=== PATIENT | male | born 1955 | race Caucasian/White ===

== ENCOUNTER → 2017-01-02 | Outpatient (CLI) | payer OTHER | LOC: LAB 16:00 | PROVIDERS: ATTEND Physician Assistant | DX: E55.9 Vitamin D deficiency, unspecified (principal) | CPT/HCPCS: 82306 ==

== ENCOUNTER 2017-07-23 03:23 | Inpatient (IN) ==
[2017-07-23] MEDS ORDERED: HYDROmorphone 2 MG/1 ML IVP ONE (03:50)
[2017-07-23] MEDS ORDERED: Sodium Chloride 0.9% 1,000 ML PRIMARY IV ONE ×2 (03:50→06:59)
[2017-07-23] MEDS ORDERED: ONDANSETRON 4 MG/2 ML VIAL IVP ONE (03:50)
[2017-07-23] MEDS ORDERED: NORMAL SALINE 10 ML SYRINGE FLUSH IVP PRN ×2 (03:50→06:59)
[2017-07-23 03:56] LABS: BASOPHILS # (AUTO) 0.05 10*3/UL; BASOPHILS % (AUTO) 0.5 % (0-1); EOSINOPHILS # (AUTO) 0.17 10*3/UL; EOSINOPHILS % (AUTO) 1.8 % (0-8); Hematocrit [HCT] 43.8 % (42.0-52.0); Hemoglobin [HGB] 15.3 g/dL (14.0-18.0); LYMPHOCYTES # (AUTO) 1.59 10*3/uL; MEAN CORPUSCULAR HEMOGLOBIN 29.7 PG (27-31); MEAN CORPUSCULAR HGB CONC 34.9 g/dL (33-37); MEAN CORPUSCULAR VOLUME 84.9 FL (80-90); MEAN PLATELET VOLUME 9.1 FL (7.4-12.2); MONOCYTES # (AUTO) 0.62 10*3/UL (0.3-0.8); MONOCYTES % (AUTO) 6.7 % (5-15); NEUTROPHILS % (AUTO) 73.6 % (50-80); RED BLOOD COUNT 5.16 10^6/uL (4.70-6.10)
[2017-07-23 03:57] LABS: PLATELET MORPHOLOGY COMMENT NORMAL MORPHOLOGY (NORM); RBC MORPHOLOGY COMMENT NORMAL MORPHOLOGY (NORM); WBC MORPHOLOGY COMMENT NORMAL MORPHOLOGY (NORM)
[2017-07-23 04:03] LABS: BLOOD UREA NITROGEN 17 mg/dL (7-22); LIPASE 72 IU/L (23-300); SERUM ALBUMIN 4.3 g/dL (3.5-4.8)
[2017-07-23 05:30] LABS: BILIRUBIN,URINE NEGATIVE (NEG); CLARITY,URINE CLEAR (CLEAR); COLOR,URINE YELLOW (Y); GLUCOSE, URINE (UA) NEGATIVE (NEG); NITRATE,URINE NEGATIVE (NEG); OCCULT BLOOD,URINE NEGATIVE (NEG); PROTEIN,URINE NEGATIVE (NEG); URINE SAMPLE TYPE CLEAN CATCH URINE
[2017-07-23 05:31] LABS: UROBILINOGEN,URINE 0.2 EU/dL (0.2)
--- NOTE | 2017-07-23 05:34 | DI ---
EXAM: CT Abdomen and Pelvis With Intravenous Contrast CLINICAL HISTORY: Abdominal pain. TECHNIQUE: Axial computed tomography images of the abdomen and pelvis with intravenous contrast. Coronal and sagittal reformatted images were created and reviewed. COMPARISON: No relevant prior studies available. FINDINGS: Lower thorax: Bibasilar scarring and atelectasis. ABDOMEN: Liver: Unremarkable. No mass. Gallbladder and bile ducts: Unremarkable. No calcified stones. No ductal dilation. Pancreas: Unremarkable. No mass. No ductal dilation. Spleen: Unremarkable. No splenomegaly. Adrenals: Unremarkable. No mass. Kidneys and ureters: 2.5 cm exophytic left renal lesion with internal density characteristics suggestive of complex cyst or soft tissue. No hydronephrosis. Stomach and bowel: There is abnormal wall thickening of small bowel loops in the right abdomen. Secondary moderate degree of dilatation of the more proximal small bowel loops with air-fluid levels. Also, wall thickening of the hepatic flexure. Small amount of free fluid. No free air or fluid collections. Diverticulosis without evidence of diverticulitis. Appendix: Normal appendix. PELVIS: Bladder: Unremarkable. No mass. Reproductive: Unremarkable as visualized. ABDOMEN and PELVIS: Intraperitoneal space: See above. Bones/joints: No acute fracture. No dislocation. Soft tissues: Unremarkable. Vasculature: Unremarkable. No abdominal aortic aneurysm. Lymph nodes: Unremarkable. No enlarged lymph nodes. IMPRESSION: Findings suspicious for infectious or inflammatory or ischemic colitis in right abdomen with secondary developing small bowel obstruction. Also, likely component of colitis involving the hepatic flexure. Small amount of free fluid. No free air or fluid collections. Normal appendix. No diverticulitis. 2.5 cm complex cyst versus soft tissue mass arising from left kidney. Recommend correlation with sonogram. [employer] 07/23/17 10:10 Call From [facility] Dr. Santana on 07/23 09:23 (-06:00)
--- NOTE | 2017-07-23 06:15 | PDOC ---
Abdomen/Flank HPI - General Chief Complaint: Abdomen Pain Stated Complaint: ABD PAIN Date Seen by Provider: 07/23/17 Time Seen by Provider: 03:35 Source: POSITIVE: Patient, Spouse Exam Limitations: POSITIVE: No limitations Nurse's Notes Reviewed & Considered: Yes - History of Present Illness Initial Comments: The patient is a 62-year-old male who presents to the emergency room with his . 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 He states he is been nauseated but has not had any vomiting. He states his only abdominal surgery occurred when he was 2 months old and had surgery for "telescoping of the bowel ". No diarrhea. No dysuria or hematuria. No melena, hematochezia or hematemesis. No known fevers. Body Location Affected: REPORTS: Abdomen Timing: REPORTS: Abrupt Duration: 4-6 hours Severity: Severe Quality: REPORTS: "Pain" Abdominal Pain Onset Location: REPORTS: RLQ Abdominal Pain Radiation: REPORTS: No radiation Context: REPORTS: None Modifying Factors: worse with: Nothing, Analgesics, Antacids, Breathing, Coughing, Defecating, Vomiting, Eating, Exercise, Lying down, Urinating, Palpation, Movement, Rest, Upright Position, Walking, Remaining Still, Other Associated Symptoms: REPORTS: Nausea Similar Symptoms Previously: No Recent Care Received: REPORTS: Denies Any Prior Injuries Related to Current Complaint?: No - Patient Home Medications Home Medications: Home Medications NK [NK] 07/23/17 - Patient Allergies Allergies/Adverse Reactions: Allergies 3 Allergy/AdvReac Type Severity Reaction Status Date / Time Sulfa (Sulfonamide Allergy Severe Anaphylaxis Verified 07/23/17 03:32 Antibiotics) Past Medical History - heen HEENT History: Denies History Cardiovascular History: Denies History Respiratory History: Denies History Gastrointestinal History: Other (please comment) Additional Gastrointestinal History: HAD AN ABDOMINAL SURGERY A BABY, UNSURE OF WHAT WAS DONE. Genitourinary History: Denies History Endocrine History: Denies History Musculoskeletal History: Denies History Neurological History: Denies History Blood Disorders: Denies History Psychiatric History: Denies History History of Sexually Transmitted Diseases: No Male Reproductive History: Denies History Cancer History: Denies History In Past Year Been Physically Harmed or Verbally Threatened: No History of MDRO: No History of Other Communicable Diseases: No Tobacco Use: Never Smoker In the Past 12 Months, Have Used or Abuse Any Substance: None Previous Surgical History: Yes Type / Date of Surgery: ABDOMINAL SURGERY A BABY Anesthesia Reactions: No Malignant Hyperthermia: No Family History of Malignant Hyperthermia: No Significant Family History: No pertinent family hx Past Medical History Reviewed: Reviewed - No Changes ROS - Limitations ROS Limitations: No Limitations Constitution: REPORTS: Denies Symptoms Cardiovascular: REPORTS: Denies Cardiac Symptoms Respiratory: REPORTS: Denies Resp Symptoms Neurological: REPORTS: Denies Neuro Symptoms Gastrointestinal: REPORTS: Abdominal Pain Endocrine: REPORTS: Denies Symptoms Musculoskeletal: REPORTS: Denies MS Symptoms Genitourinary: REPORTS: Denies Symptoms Eyes: REPORTS: Denies Symptoms ENT: REPORTS: Denies Symptoms Skin: REPORTS: Denies Skin Symptoms Lympathic: REPORTS: Denies Lympathic Symptoms Immunologic: POSITIVE: Denies Symptoms Psychiatric: POSITIVE: Denies Psych Symptoms Abdominal/Flank Pain PE - General Appearance General Appearance: POSITIVE: Alert, Cooperative, No Acute Distress, No Evidence of Trauma - HEENT HEENT: POSITIVE: Head Inspection Nml, Eyes Inspection Nml, Ears Inspection Nml, Nose Inspection Nml, Oral/Dental Inspect. Nml, Pharynx Inspect. Nml, PERRL, EOMI - Neck Neck: POSITIVE: Normal Inspection, No Apparent Injury - Respiratory Respiratory: POSITIVE: No Respiratory Distress, Breath Sounds Normal, Chest Non- Tender - Cardiovascular Cardiovascular: POSITIVE: Regular Rate and Rhythm, Heart Sounds Normal, Equal Pulses, Strong Pulses Peripheral Pulses: Radial (R): 2+, Radial (L): 2+ - Chest Chest: POSITIVE: Non Tender - Abdomen Abdomen: Soft: (LLQ), (LUQ), (RUQ), Normal Bowel Sounds: (All Quadrants), Denies Tenderness: (LLQ), (LUQ), (RUQ), No Splenomegaly: (All Quadrants), No Hepatomegaly: (All Quadrants), No Guarding: (All Quadrants), No Rebound: (All Quadrants), No Palpable Pulse: (All Quadrants), No Palpabale Mass: (All Quadrants), No Distention: (All Quadrants), No Rigidity: (All Quadrants), Tenderness Noted: (RLQ) Additional Abdominal Details: Abdominal examination shows bowel sounds to be present. There is pain on direct palpation over the right lower quadrant and right paraumbilical area. A surgical scar is noted chest right of the umbilicus. No masses, organomegaly or rebound. 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 Secondary moderate degree of dilation of the more proximal small bowel loops with air-fluid levels. Also, wall thickening of the hepatic flexure. Small amount of free fluid. No free air or fluid collections. Normal appendix. Findings suspicious for infectious or inflammatory or ischemic colitis in right abdomen with secondarily developing small bowel obstruction. Also, likely component of colitis involving the hepatic flexure. Lab Results Reviewed by Me: Yes CBC and BMP: 07/23/17 03:39 07/23/17 03:39 - Patient's Progress Pain Medication Addressed: POSITIVE: Yes (Patient given Dilaudid, 2 mg IV with alleviation of pain) School/Work Release Addressed: POSITIVE: Not Applicable Re-examine Time: 06:00 Re-Examine Comment: Patient feels somewhat better after fluids and Dilaudid and Zofran, but still quite tender in the right abdomen. Status: POSITIVE: Improved, Re-Examined - Consult Consult (If Yes, Name of Consulting MD & Time Called): Yes (Dr. Santana surgeon, Dr. Coombs hospitalist, [id number]) Consulting MD will see pt:: POSITIVE: [facility] [place] Admit Counseled: POSITIVE: Patient, Family, RE: Lab Results, RE: Radiology Results, RE : DX, RE: Need for F/U Patient Care Time - Estimated PCT Patient Care Time (In Minutes): 60 Vital Signs - Recent Vital Signs Vital Signs: Vital Signs (Last 8 hours) Temp Pulse Resp BP Pulse Ox 07/23/17 03:23 97.5 F 55 L 22 142/87 95 - VS Reviewed Vital Signs Reviewed: Yes Discharge Clinical Impression: Abdominal pain Discharge Disposition: Admit to Inpatient Condition: Stable Follow Up With: Will Chery FNP [Primary Care Provider] - Date Decision to Admit to Inpatient: 07/23/17 Time Decision to Admit to Inpatient: 06:00
[2017-07-23] MEDS ORDERED: HYDROmorphone 2 MG/1 ML IVP PRN (06:59)
[2017-07-23] MEDS ORDERED: LIDOCAINE W/ SODIUM BICARB 0.5 ML SYR SUBD PRN (06:59)
[2017-07-23] MEDS ORDERED: ONDANSETRON 4 MG/2 ML VIAL IVP PRN (06:59)
[2017-07-23] MEDS: Sodium Chloride 0.9% 1,000 ML PRIMARY IV SCH ×2 (08:25→21:00)
--- NOTE | 2017-07-23 08:52 | EKG ---
[address] [address] Measurements Intervals [place] Rate: 53 P: 81 MS: 140 QRS: 58 QRSD: 104 T: 41 QT: 435 QTc: 419 Interpretive Statements SINUS BRADYCARDIA POSSIBLE RIGHT VENTRICULAR CONDUCTION DELAY No previous ECG available for comparison Electronically Signed On 07-24-17 14:43:42 MDT by Dagoberto Horowitz [email or web address]
--- NOTE | 2017-07-23 10:54 | CONSULT ---
Consult Note - Consult Consult Date: 07/23/17 Reason for Consult: PreOp Consulation : General Surgery Requesting Physician: Dr. María Grant Primary Care Provider: Will Chery DNP - History of Present Illness History of Present Illness: Patient is a 62-year-old male who I am asked to see for partial small bowel obstruction. Patient reports he was fine yesterday. He ate popcorn, raw carrots and salad. He developed an upset stomach. He went to bed about 10 PM. He woke up an hour and a half later with some increasing pain. He tried to go to the bathroom but didn't. He went back to bed and woke up with severe pain. He was soaked in sweat. He was having cramping abdominal pain. He presented to the hospital and had some nausea at that time. He did not vomit. Patient had a loose bowel movement yesterday afternoon. He has passed some gas this morning. Patient presented to the emergency room. He was afebrile and his vital signs were stable. Lab work and urinalysis were unremarkable. He had a CT scan of his abdomen and pelvis with IV contrast. His colon looks normal with possibly a small area of narrowing at the hepatic flexure but most likely peristalsis. His appendix is normal. He has some abnormally thickened loops of small bowel in the right mid abdomen. This is approximately 10 cm proximal to the ileocecal valve or in his terminal ileum. There is proximal small bowel dilatation. There is small bowel fecalization. This was read as possibly infectious, ischemic or inflammatory colitis. I reviewed this with a different radiologist who reports it should be infectious, ischemic, or inflammatory enteritis not colitis. He has a cyst on a kidney and on ultrasound is pending. 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 Sounds as though he had intussusception. He believes a section of bowel was removed. Patient reports some chronic abdominal complaints which have not been much of a bother for the last 10 years. He does occasionally have cramps. The reports he has to eat very slow and chews his food well. It sounds as though he may have had some abdominal symptoms for a long time. He has had colonoscopies in the past. His last was more than 5 years ago but less than 10 years ago. There is a family history of colon cancer. He reports he is having stools of decreased caliber for the last 2 months. He denies bright red blood per rectum. Patient was admitted and given a milligram of Dilaudid. An NG tube was placed. He did pass some gas this morning but had no bowel movement. He reports his pain is markedly improved. He feels good at this time. Review of Systems - Respiratory Respiratory: REPORTS: Negative System Review. DENIES: Cough, Sputum, Dyspnea At Rest, Dyspnea with Exertion, Pleuritic Pain, Hemoptysis, Wheezing, Other, See HPI - Cardiovascular Cardiovascular: REPORTS: Negative System Review. DENIES: Chest Pain, Edema, Syncope, Palpitations, Orthopnea, Paroxysmal Nocturnal Dyspnea, Other, See HPI - Gastrointestinal Gastrointestinal / Abdominal: REPORTS: Nausea, Diarrhea, Abdominal Pain, Bloating, See HPI. DENIES: Negative System Review, Vomiting, Constipation, Bloody Stool, Poor Appetite, Heartburn, Regurgitation, Lactose Intolerance, Melena, Bright Red Blood per Rectum, Other Past Medical History Medical History: Chronic abdominal complaints. Obstructive sleep apnea(he uses a CPAP). Surgical History: Small bowel resection. Left ear tumor. Transurethral resection of the prostate. Tonsillectomy and adenoidectomy. Colonoscopy more than 5 years ago but less than 10 years ago. Tobacco Use: Never Smoker In the Past 12 Months, Have Used or Abuse Any of the Following Substance: None Medication / Allergies Home Medications: Home Medications Medication Instructions Recorded Confirmed Type Aspirin [Aspir 81] 81 mg PO DAILY 07/23/17 07/23/17 History Fluticasone Nasal Arminto 0.05% 2 sprays NASAL DAILY 07/23/17 07/23/17 History [Flonase Nasal Arminto 0.05%] Allergies/Adverse Reactions: Allergies 3 Allergy/AdvReac Type Severity Reaction Status Date / Time Sulfa (Sulfonamide Allergy Severe Anaphylaxis Verified 07/23/17 03:32 Antibiotics) Exam - Vitals Vital Signs: Vital Signs Temperature 97.6 F Temperature Source Temporal Artery Scan Pulse Rate [Pulse Oximeter] 46 Pulse Rate 52 Respiratory Rate 17 Blood Pressure [Left Arm] 151/77 Blood Pressure 130/87 Pulse Ox 100 Oxygen Delivery Method Room Air Height 5 ft 10 in Weight 181 lb - General General Appearance: No Acute Distress, Cooperative - Respiratory Respiratory Exam: POSITIVE: Clear to Auscultation - Bilaterally, Breathing Non Labored - Cardiovascular Cardiovascular Exam: POSITIVE: RRR, No Murmur - GI/Abdominal GI/Abdominal Exam: POSITIVE: Normal Bowel Sounds, Non Distended, Soft Additional GI/Abdominal Exam Details: Patient has good bowel tones. Some of them sounded been obstructive in nature. He has some mild right upper quadrant tenderness. No peritoneal irritation. Certainly not an acute surgical abdomen. - Rectal Rectal Exam: POSITIVE: Deferred - Neurological Neurological Exam: POSITIVE: Alert, Oriented x 3 - Psychiatric Psychiatric Exam: POSITIVE: Normal Affect, Normal Mood Assessment and Plan - Patient Problems (1) Partial small bowel obstruction Current Visit: Yes Status: Acute Priority: High Onset Date: ~07/22/17 Comment: In fact he probably has chronic problems as evidenced by his history. At any rate it seemed to worsen last night. He has abnormally thickened terminal ileum. This could represent scar tissue, ischemia, infectious, or inflammatory condition. With the fecalization of his small bowel I think it is chronic in nature. We will get a Gastrografin challenge today. If things move through he can likely be discharged if he tolerates a diet. Would do an outpatient CT with oral, rectal, and IV contrast. If things don't improve by the morning I would recommend an exploratory laparotomy with probably resection of this abnormal small bowel. I discussed all the above in detail with the patient and his as well as with Dr. Daniel. All are in agreement to proceed as outlined. Also check a.m. labs which have been ordered. Code(s): K56.69 - Other intestinal obstruction (2) Abdominal pain Current Visit: Yes Status: Acute Priority: Medium Onset Date: ~07/22/17 Comment: Secondary to his partial small bowel obstruction. Largely resolved. Continue to monitor. Code(s): R10.9 - Unspecified abdominal pain (3) Change in bowel habits Current Visit: Yes Status: Acute Priority: Medium Onset Date: ~05/20/17 Comment: Patient reports 2 weeks of decreased caliber stool and a family history of colon cancer. He will need an outpatient colonoscopy after resolution of his acute problem. Code(s): R19.4 - Change in bowel habit Results - Labs CBC and BMP: 07/23/17 03:39 07/23/17 03:39 - Imaging Status: Image Reviewed by Me (And discussed with the radiologist.), Report Reviewed by Me (Should say enteritis and not colitis.)
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
--- NOTE | 2017-07-23 18:31 | PDOC(PROG) ---
Date and Time of Service: 07/23/2017 6:30 PM Interval History: Patient is feeling well. No pain. No nausea. I called to check on him and had had multiple bowel movements. I came in to evaluate him for the same. The Gastrografin has cleared the small bowel. The colon is full of Gastrografin in its down to his rectum. There are no longer dilated loops of small bowel. Objective : Data - Labs CBC and BMP: 07/23/17 03:39 07/23/17 03:39 - Imaging Imaging Details: The Gastrografin is throughout the entire colon and into the rectum. It is cleared from the small bowel. There is no evidence of obstruction. - Vital Signs Vital Signs and I&O: Vital Signs - Last Taken Temperature 97 F 07/23/17 16:16 Pulse Rate 63 07/23/17 16:16 Respiratory Rate 18 07/23/17 16:16 Blood Pressure 127/71 07/23/17 16:16 Pulse Ox 94 07/23/17 16:16 Intake and Output (24hr x 4 totals) 07/21/17 07/22/17 07/23/17 07/24/17 05:59 05:59 05:59 05:59 Intake Total 2740 / 2740 Output Total 1100 / 1100 Balance 1640 / 1640 Objective : Exam - General General Appearance: No Acute Distress, Cooperative - GI/Abdominal GI/Abdominal Exam: Normal Bowel Sounds, Non Tender, Non Distended, Soft - Neurological Neurological Exam: Alert, Oriented x 3 - Psychiatric Psychiatric Exam: Normal Affect, Normal Mood Assessment and Plan - Patient Problems (1) Partial small bowel obstruction Current Visit: Yes Status: Acute Priority: High Onset Date: ~07/22/17 Comment: Resolved on x-ray. We will discontinue the NG tube and start clear liquids. We'll get an x-ray in the morning. We'll make the patient nothing by mouth after midnight. We will cut his IV fluids back but continued through the night as he will be nothing by mouth. We still have an abnormal area of small bowel which will need to be further evaluated. I will talk to the radiologist tomorrow. The question is whether we do a follow-up CT tomorrow or do it in a couple weeks with oral and IV contrast. Further recommendations pending my conversation with the radiologist. Code(s): K56.69 - Other intestinal obstruction (2) Abdominal pain Current Visit: Yes Status: Acute Priority: Medium Onset Date: ~07/22/17 Comment: Resolved. Code(s): R10.9 - Unspecified abdominal pain (3) Change in bowel habits Current Visit: Yes Status: Acute Priority: Medium Onset Date: ~05/20/17 Comment: Plan outpatient colonoscopy for change in bowel habits and positive family history of colon cancer. Code(s): R19.4 - Change in bowel habit
[2017-07-24 04:52] LABS: BASOPHILS # (AUTO) 0.02 10*3/UL; BASOPHILS % (AUTO) 0.4 % (0-1); EOSINOPHILS # (AUTO) 0.23 10*3/UL; EOSINOPHILS % (AUTO) 4.8 % (0-8); Hematocrit [HCT] 41.4 % (42.0-52.0); LYMPHOCYTES # (AUTO) 1.67 10*3/uL; MEAN CORPUSCULAR HEMOGLOBIN 29.2 PG (27-31); MEAN CORPUSCULAR HGB CONC 33.8 g/dL (33-37); MEAN CORPUSCULAR VOLUME 86.3 FL (80-90); MEAN PLATELET VOLUME 9.2 FL (7.4-12.2); MONOCYTES # (AUTO) 0.39 10*3/UL (0.3-0.8); MONOCYTES % (AUTO) 8.1 % (5-15); NEUTROPHILS # (AUTO) 2.48 10*3/UL; NEUTROPHILS % (AUTO) 51.7 % (50-80)
[2017-07-24 04:53] LABS: PLATELET MORPHOLOGY COMMENT NORMAL MORPHOLOGY (NORM); RBC MORPHOLOGY COMMENT NORMAL MORPHOLOGY (NORM); WBC MORPHOLOGY COMMENT NORMAL MORPHOLOGY (NORM)
[2017-07-24 05:04] LABS: BLOOD UREA NITROGEN 14 mg/dL (7-22); BUN/CREATININE RATIO 15.55 (6-20); MAGNESIUM 1.9 mg/dL (1.6-2.4); SERUM ALBUMIN 3.3 g/dL (3.5-4.8)
--- NOTE | 2017-07-24 09:34 | DI ---
XR CXR 2VW PA/LAT,07/23/2017 3:51 AM: Clinical History: Abdominal pain. Previous Exam: January 29, 2009 Findings: PA and lateral views of the chest were obtained, and demonstrate clear lungs. The cardiomediastinum a nd bony thorax are unremarkable. Impression: Normal chest.
--- NOTE | 2017-07-24 12:31 | DI ---
XR SMALL BOWEL SERIES,07/23/2017 10:38 AM: Clinical History: Partial small bowel obstruction. Previous Exam: CT abdomen pelvis performed July 23, 2017 Findings: Multiple views are obtained at different times after oral administration of contrast, and demonstrate continued advancement of contrast throughout the small bowel and into the colon and rectum. There is also some contrast enhancement within the urinary bladder. There is no evidence of obstruction on th is exam. The appendix is normal. Visualized ureters are unremarkable. Skeletal structures are unremarkable and no pathologic calcifica tions are seen. Impression: Normal passage of contrast through the entire length of the alimentary canal.
--- NOTE | 2017-07-24 13:39 | DI ---
XR ABDOMEN KUB UPRIGHT,07/24/2017 7:00 AM: Clinical History: Partial small bowel obstruction. Previous Exam: July 23, 2017 Findings: 3 views of the abdomen and pelvis are obtained, and demonstrate contrast throughout the colon. There is also contrast noted within the rectum and sigmoid. There is no evidence of air-fluid level nor sma ll bowel dilation. The appendix is normal. There is no subdiaphragmatic free air. No pathologic calci fications are seen and no fractures are seen. There is some contrast noted within the urinary bilateral. Impression: The contrast throughout the colon with no evidence of small bowel obstruction on this exam.
--- NOTE | 2017-07-24 15:57 | PDOC(PROG) ---
Date and Time of Service: 07/24/2017 patient was seen at 9 AM and at 3:45 PM Interval History: Patient reports he feels much better than yesterday. He is tolerating clear liquids. He has had multiple liquid bowel movements. He is passing gas. He does have some right mid abdominal pain but nothing like he had prior to presentation. He denies nausea or vomiting. His x-rays have been reviewed with the radiologist. He has some kind of distal small bowel enteritis. Whether this is viral, bacterial, or inflammatory is unclear. Possible scar tissue from his prior surgery also exists. The radiologist felt that the best course of action would be to do a CT enterography in approximately 2-4 weeks to further evaluate this segment. Has been discussed with the patient and his . Objective : Data - Labs CBC and BMP: 07/24/17 04:25 07/24/17 04:25 - Imaging Imaging Details: Today's x-ray shows the contrast throughout the colon and into the rectum. No evidence of bowel obstructive process. - Vital Signs Vital Signs and I&O: Vital Signs - Last Taken Temperature 97.8 F 07/24/17 11:20 Pulse Rate 70 07/24/17 11:20 Respiratory Rate 18 07/24/17 11:20 Blood Pressure 128/63 07/24/17 11:20 Pulse Ox 97 07/24/17 11:20 Intake and Output (24hr x 4 totals) 07/22/17 07/23/17 07/24/17 07/25/17 05:59 05:59 05:59 05:59 Intake Total 3523 / 3523 480 / 480 Output Total 1350 / 1350 400 / 400 Balance 2173 / 2173 80 / 80 Objective : Exam - General General Appearance: No Acute Distress, Cooperative - Respiratory Respiratory Exam: Clear to Auscultation - Bilaterally, Breathing Non Labored - Cardiovascular Cardiovascular Exam: RRR, No Murmur - GI/Abdominal GI/Abdominal Exam: Normal Bowel Sounds, Non Distended, Soft Additional GI/Abdominal Exam Details: Patient has some right mid abdominal tenderness to palpation. No peritoneal signs. No obvious mass. Assessment and Plan - Patient Problems (1) Partial small bowel obstruction Current Visit: Yes Status: Acute Priority: High Onset Date: ~07/22/17 Comment: Resolved. Probably secondary to some kind of an enteritis. We will plan follow-up in my office in [address] at that time. Discussed with the patient and his . Will advance him to a low residue diet tomorrow. Patient to stay on a low residue diet until he sees me in the office. Code(s): K56.69 - Other intestinal obstruction (2) Abdominal pain Current Visit: Yes Status: Acute Priority: Medium Onset Date: ~07/22/17 Comment: Right midabdomen, secondary to his enteritis. No fevers, no elevation of his white count. Continue to monitor. Code(s): R10.9 - Unspecified abdominal pain (3) Change in bowel habits Current Visit: Yes Status: Acute Priority: Medium Onset Date: ~05/20/17 Comment: Needs a colonoscopy. Whether I will do this before or after the CT enterography is still to be decided. This should be done preop if we need to pursue surgery. If the diarrhea persists will also get stool studies. Code(s): R19.4 - Change in bowel habit
--- NOTE | 2017-07-24 16:42 | PDOC(PROG) ---
Date and Time of Service: 07/24/2017, 1638 Interval History: No completes of chest pain, shortness breath, nausea or vomiting. Tolerating soft diet so far. Had cream of wheat earlier today and tolerated that. Passing gas and bowel movements. KUB read as negative and normal. I discussed with surgery, and the patient will be on a low residual diet for the next 2 weeks, and do CT scan outpatient. We will make sure he can tolerate low residual diet through the next night, and then possibly discharge tomorrow. I was also able to schedule a urology appointment to look at his renal mass. Will order ultrasound for an outpatient. Patient states his pain is improved by orders and management. Objective : Data - Labs CBC and BMP: 07/24/17 04:25 07/24/17 04:25 Additional Lab Results: Laboratory Results 07/23/17 07/23/17 07/23/17 Range/Units 03:39 03:39 05:24 WBC 9.25 (4.8-10.8) 10^3/uL RBC 5.16 (4.70-6.10) 10^6/uL Hgb 15.3 (14.0-18.0) g/dL Hct 43.8 (42.0-52.0) % MCV 84.9 (80-90) FL MCH 29.7 (27-31) PG MCHC 34.9 (33-37) g/dL RDW Std Deviation 39.8 (39-50) fL RDW Coeff of Tabatha 13.0 (11.5-14.5) % Plt Count 251 (140-350) 10*3/uL MPV 9.1 (7.4-12.2) FL Immature Gran % (Auto) 0.2 (0-5) % Neut % (Auto) 73.6 (50-80) % Lymph % (Auto) 17.2 (10-50) % [place] % (Auto) 6.7 (5-15) % Eos % (Auto) 1.8 (0-8) % Baso % (Auto) 0.5 (0-1) % Immature Gran # (Auto) 0.02 10*3/UL Neut # (Auto) 6.80 10*3/UL Lymph # (Auto) 1.59 10*3/uL [place] # (Auto) 0.62 (0.3-0.8) 10*3/UL Eos # (Auto) 0.17 10*3/UL Baso # (Auto) 0.05 10*3/UL WBC Morphology Comment Normal morphology (NORM) Plt Morphology Comment Normal morphology (NORM) RBC Morph Comment Normal morphology (NORM) PT (9.7-11.4) secs INR (0.00-5.90) N/A Sodium 138 (135-145) meq/L Potassium 4.1 (3.8-5.2) meq/L Chloride 102 (98-112) meq/L Carbon Dioxide 26 (23-33) meq/L Anion Gap 10 (5-20) BUN 17 (7-22) mg/dL Creatinine 1.0 (0.70-1.50) mg/dL Estimated GFR > 60 (>60 ml/min/1.73m(2)) BUN/Creatinine Ratio 17.00 (6-20) Glucose 102 (78-110) mg/dL Calculated Osmolality 287.0 (267-292) mOsm/kg Lactic Acid (0.70-2.10) MMOL/L Calcium 9.6 (8.7-10.7) mg/dL Magnesium (1.6-2.4) mg/dL Total Bilirubin 0.6 (0.3-1.2) mg/dL AST 58 H (21-57) IU/L ALT 43 (21-72) IU/L Alkaline Phosphatase 54 (38-126) IU/L Total Protein 7.2 (6.1-8.0) g/dL Albumin 4.3 (3.5-4.8) g/dL Globulin 2.9 (2.50-4.10) g/dL Albumin/Globulin Ratio 1.40 (1.3-2.0) mg/g Amylase 83 (30-110) U/L Lipase 72 (23-300) IU/L Ur Collection Type Clean catch urine Urine Color Yellow (Y) Urine Clarity Clear (CLEAR) Urine pH 7.0 (5.0-8.5) Ur Specific [place] 1.010 (1.005-1.030) Urine Protein Negative (NEG) mg/dl Urine Glucose (UA) Negative (NEG) mg/dL Urine Ketones Negative (NEG) Urine Occult Blood Negative (NEG) Urine Nitrate Negative (NEG) Urine Bilirubin Negative (NEG) Urine Urobilinogen 0.2 (0.2) EU/dL Ur Leukocyte Esterase Negative (NEG) Ur Culture Indicated? Culture not set 07/23/17 07/23/17 07/24/17 Range/Units 07:15 07:15 04:25 WBC 4.80 (4.8-10.8) 10^3/uL RBC 4.80 (4.70-6.10) 10^6/uL Hgb 14.0 (14.0-18.0) g/dL Hct 41.4 L (42.0-52.0) % MCV 86.3 (80-90) FL MCH 29.2 (27-31) PG MCHC 33.8 (33-37) g/dL RDW Std Deviation 40.7 (39-50) fL RDW Coeff of Tabatha 13.0 (11.5-14.5) % Plt Count 210 (140-350) 10*3/uL MPV 9.2 (7.4-12.2) FL Immature Gran % (Auto) 0.2 (0-5) % Neut % (Auto) 51.7 (50-80) % Lymph % (Auto) 34.8 (10-50) % [place] % (Auto) 8.1 (5-15) % Eos % (Auto) 4.8 (0-8) % Baso % (Auto) 0.4 (0-1) % Immature Gran # (Auto) 0.01 10*3/UL Neut # (Auto) 2.48 10*3/UL Lymph # (Auto) 1.67 10*3/uL [place] # (Auto) 0.39 (0.3-0.8) 10*3/UL Eos # (Auto) 0.23 10*3/UL Baso # (Auto) 0.02 10*3/UL WBC Morphology Comment Normal morphology (NORM) Plt Morphology Comment Normal morphology (NORM) RBC Morph Comment Normal morphology (NORM) PT 10.7 (9.7-11.4) secs INR 1.01 (0.00-5.90) N/A Sodium (135-145) meq/L Potassium (3.8-5.2) meq/L Chloride (98-112) meq/L Carbon Dioxide (23-33) meq/L Anion Gap (5-20) BUN (7-22) mg/dL Creatinine (0.70-1.50) mg/dL Estimated GFR (>60 ml/min/1.73m(2)) BUN/Creatinine Ratio (6-20) Glucose (78-110) mg/dL Calculated Osmolality (267-292) mOsm/kg Lactic Acid 0.8 (0.70-2.10) MMOL/L Calcium (8.7-10.7) mg/dL Magnesium 2.0 (1.6-2.4) mg/dL Total Bilirubin (0.3-1.2) mg/dL AST (21-57) IU/L ALT (21-72) IU/L Alkaline Phosphatase (38-126) IU/L Total Protein (6.1-8.0) g/dL Albumin (3.5-4.8) g/dL Globulin (2.50-4.10) g/dL Albumin/Globulin Ratio (1.3-2.0) mg/g Amylase (30-110) U/L Lipase (23-300) IU/L Ur Collection Type Urine Color (Y) Urine Clarity (CLEAR) Urine pH (5.0-8.5) Ur Specific [place] (1.005-1.030) Urine Protein (NEG) mg/dl Urine Glucose (UA) (NEG) mg/dL Urine Ketones (NEG) Urine Occult Blood (NEG) Urine Nitrate (NEG) Urine Bilirubin (NEG) Urine Urobilinogen (0.2) EU/dL Ur Leukocyte Esterase (NEG) Ur Culture Indicated? 07/24/17 Range/Units 04:25 WBC (4.8-10.8) 10^3/uL RBC (4.70-6.10) 10^6/uL Hgb (14.0-18.0) g/dL Hct (42.0-52.0) % MCV (80-90) FL MCH (27-31) PG MCHC (33-37) g/dL RDW Std Deviation (39-50) fL RDW Coeff of Tabatha (11.5-14.5) % Plt Count (140-350) 10*3/uL MPV (7.4-12.2) FL Immature Gran % (Auto) (0-5) % Neut % (Auto) (50-80) % Lymph % (Auto) (10-50) % [place] % (Auto) (5-15) % Eos % (Auto) (0-8) % Baso % (Auto) (0-1) % Immature Gran # (Auto) 10*3/UL Neut # (Auto) 10*3/UL Lymph # (Auto) 10*3/uL [place] # (Auto) (0.3-0.8) 10*3/UL Eos # (Auto) 10*3/UL Baso # (Auto) 10*3/UL WBC Morphology Comment (NORM) Plt Morphology Comment (NORM) RBC Morph Comment (NORM) PT (9.7-11.4) secs INR (0.00-5.90) N/A Sodium 140 (135-145) meq/L Potassium 4.0 (3.8-5.2) meq/L Chloride 108 (98-112) meq/L Carbon Dioxide 25 (23-33) meq/L Anion Gap 7 (5-20) BUN 14 (7-22) mg/dL Creatinine 0.9 (0.70-1.50) mg/dL Estimated GFR > 60 (>60 ml/min/1.73m(2)) BUN/Creatinine Ratio 15.55 (6-20) Glucose 86 (78-110) mg/dL Calculated Osmolality 289.0 (267-292) mOsm/kg Lactic Acid 0.8 (0.70-2.10) MMOL/L Calcium 8.5 L (8.7-10.7) mg/dL Magnesium 1.9 (1.6-2.4) mg/dL Total Bilirubin 1.1 (0.3-1.2) mg/dL AST 23 (21-57) IU/L ALT 35 (21-72) IU/L Alkaline Phosphatase 31 L (38-126) IU/L Total Protein 5.9 L (6.1-8.0) g/dL Albumin 3.3 L (3.5-4.8) g/dL Globulin 2.6 (2.50-4.10) g/dL Albumin/Globulin Ratio 1.20 L (1.3-2.0) mg/g Amylase (30-110) U/L Lipase (23-300) IU/L Ur Collection Type Urine Color (Y) Urine Clarity (CLEAR) Urine pH (5.0-8.5) Ur Specific [place] (1.005-1.030) Urine Protein (NEG) mg/dl Urine Glucose (UA) (NEG) mg/dL Urine Ketones (NEG) Urine Occult Blood (NEG) Urine Nitrate (NEG) Urine Bilirubin (NEG) Urine Urobilinogen (0.2) EU/dL Ur Leukocyte Esterase (NEG) Ur Culture Indicated? - Imaging X-Ray Status: Report Reviewed by Me (KUB normal, no obstruction) Objective : Exam - General General Appearance: No Acute Distress, Cooperative Additional General Exam Details: Vital Signs (24 hrs) Temp Pulse Pulse Resp BP Pulse Ox 07/24/17 16:27 97.2 F 55 L 17 138/81 98 07/24/17 11:20 97.8 F 70 18 128/63 97 07/24/17 07:12 97 F 62 18 127/70 95 07/24/17 07:00 62 07/24/17 04:11 98.3 F 80 20 119/70 94 07/23/17 23:42 98.0 F 63 16 125/73 95 07/23/17 20:38 98.0 F 83 21 139/62 93 07/23/17 19:00 80 - Eye Eye Exam: No Scleral Icterus - ENT ENT Exam: Mucous Membranes Moist - Respiratory Respiratory Exam: Clear to Auscultation - Bilaterally, Breathing Non Labored - Cardiovascular Cardiovascular Exam: RRR, No Murmur, No Clicks, No Gallops, No Rubs, No JVD - GI/Abdominal GI/Abdominal Exam: Normal Bowel Sounds, Non Tender, Non Distended, Soft - Extremities Extremities Exam: No Clubbing Present, No Edema Present, No Cyanosis Present - Neurological Neurological Exam: Alert, Oriented x 3, No Facial Droop, Speech Intact / Clear, Moves All Extremities Equally Assessment and Plan - Patient Problems (1) Partial small bowel obstruction Current Visit: Yes Status: Acute Priority: High Onset Date: ~07/22/17 Code(s): K56.69 - Other intestinal obstruction (2) Left kidney mass Current Visit: Yes Status: Acute Code(s): N28.89 - Other specified disorders of kidney and ureter (3) Obstructive sleep apnea Current Visit: Yes Status: Acute Code(s): G47.33 - Obstructive sleep apnea ( adult) (pediatric) (4) History of traumatic brain injury Current Visit: Yes Status: Acute Code(s): Z87.820 - Personal history of traumatic brain injury - Assessment / Plan Additional Assessment/Plan Details: retroperitoneal US to look at kidney mass. films and records to [facility], I was able to get an appointment scheduled with Dr. Hernandez this at 4:30 PM. Diet as per Dr. Santana. Follow-up CT scan as per Dr. Santana in the clinic in a couple of weeks. No other changes from hospitalist side today. Although he complained more or voiced his pain more, I think his descriptions are somewhat difficult to understand in light of his dramatic brain injury in his youth. He stated to me that he was "magnitudes" better than he was when he first came in. Electrolytes look good.
[2017-07-24] MEDS: Sodium Chloride 0.9% 1,000 ML PRIMARY IV SCH (17:59)
--- NOTE | 2017-07-24 18:38 | DI ---
US Retroperitoneum,07/24/2017 4:41 PM: Clinical History: Left renal mass. Previous Exam: None at this facility. Findings: Multiple grayscale and color Doppler sonographic images are obtained through the retroperitoneum, and demonstrate a normal-appearing urinary bladder. There is an echogenic hypoechoic area with imperceptible almeida and increased echogenicity of the post erior wall. There is no definite increased through transmission. This measures 2.1 x 1.6 x 2.2 cm. The right kidney in its entirety measured 10.3 cm in length. The left kidney measured 11.2 cm in willam th. There is no hydronephrosis nor nephrolithiasis. There is a small post void residual noted measuri ng 98 cc. Impression: 1. Hypoechoic mass within superior pole left kidney most likely represents a cyst. Given the fact that this does not meet strict criteria has a simple cyst, recommend followup imaging in one year to document stability. This would be best if it was performed with [address]
[2017-07-25 08:13] VITALS: RESP 18
--- NOTE | 2017-07-25 08:41 | PDOC(PROG) ---
Date and Time of Service: 07/25/2017 8:30 AM Interval History: Overall had a good night. Tolerating his diet. Passing gas. Has not had a bowel movement this morning but had bowel movements yesterday. Reports some right-sided abdominal pain when he presses on it. No pain otherwise. Feels much better than on arrival. Objective : Data - Labs CBC and BMP: 07/24/17 04:25 07/24/17 04:25 - Vital Signs Vital Signs and I&O: Vital Signs - Last Taken Temperature 97.3 F 07/25/17 08:11 Pulse Rate 63 07/25/17 08:11 Respiratory Rate 18 07/25/17 08:11 Blood Pressure 131/84 07/25/17 08:11 Pulse Ox 95 07/25/17 08:11 Intake and Output (24hr x 4 totals) 07/23/17 07/24/17 07/25/17 07/26/17 05:59 05:59 05:59 05:59 Intake Total 3523 / 3523 1575 / 1575 100 / 100 Output Total 1350 / 1350 1550 / 1550 1000 / 1000 Balance 2173 / 2173 -900 / -900 Objective : Exam - General General Appearance: No Acute Distress, Cooperative - Respiratory Respiratory Exam: Clear to Auscultation - Bilaterally, Breathing Non Labored - Cardiovascular Cardiovascular Exam: RRR, No Murmur - GI/Abdominal GI/Abdominal Exam: Normal Bowel Sounds, Non Distended, Soft Additional GI/Abdominal Exam Details: Still has some right mid abdominal tenderness with pressure. No mass. No peritoneal signs. This is the area of the inflamed bowel seen on CT. - Neurological Neurological Exam: Alert, Oriented x 3 - Psychiatric Psychiatric Exam: Normal Affect, Normal Mood Assessment and Plan - Patient Problems (1) Partial small bowel obstruction Current Visit: Yes Status: Acute Priority: High Onset Date: ~07/22/17 Comment: Resolved. Still has an enteritis. No elevation of his white count or fever. Hopefully this will be self-limiting. If he tolerates his diet he can be discharged home. He should see me in the office next week. We'll consider colonoscopy with intubation of the terminal ileum and CT enterography at that time. If he has diarrhea would get stool studies. I will sign off at this time. Please call if I can be of further help. Code(s): K56.69 - Other intestinal obstruction (2) Abdominal pain Current Visit: Yes Status: Acute Priority: Medium Onset Date: ~07/22/17 Comment: Only with palpation in his right mid abdomen. Again this is secondary to his enteritis. Etiology of his enteritis remains unclear. Code(s): R10.9 - Unspecified abdominal pain (3) Change in bowel habits Current Visit: Yes Status: Acute Priority: Medium Onset Date: ~05/20/17 Comment: Decreased stool caliber. Outpatient colonoscopy as planned. Code(s): R19.4 - Change in bowel habit
[2017-07-25 11:54] VITALS: BP 156/85; TEMP 97.8; O2SAT 98
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
== END 2017-07-25 13:13 | disposition home or self-care (01) | DRG 390 ==
LOC: ER 03:23 → MED/SURG 06:17
PROVIDERS: ADMIT Family Medicine; ATTEND Family Medicine